=== PATIENT | female | born 1980 | race Two or more races ===

== ENCOUNTER → 2024-08-09 | Outpatient (CLI) | payer BC, SELFPAY ==
--- NOTE | 2024-08-09 15:41 | XR_ITS ---
Examination: Knee, left , 3 views Technique: Knee AP, lateral, oblique 3 views Date and time of exam: August 09, 2024 1603 hours INDICATIONS: Knee pain beginning several years ago FINDINGS: Mild narrowing medial joint space Moderate osteopenia No fracture or dislocation No ossified joint bodies IMPRESSION: Mild narrowing medial joint space
--- NOTE | 2024-08-09 15:41 | XR_ITS ---
Examination: Lumbar spine 3 views TECHNIQUE: AP lateral coned lateral lower lumbar spine 3 views Exam date and time: August 09, 2024 1615 hours INDICATIONS: Low back pain beginning several years ago. FINDINGS: Minimal anterolisthesis L4 on L3 on the lateral view No lumbar fracture Diffuse lumbar disc narrowing, moderate L4-L5, advanced L5-S1 No spondylolisthesis IMPRESSION: Diffuse lumbar degenerative disc disease, moderate L4-L5, advanced L5-S1
--- NOTE | 2024-08-09 15:41 | XR_ITS ---
Examination: Cervical spine 3 views Technique one AP lateral coned AP odontoid cervical spine 3 views Exam date and time: August 09, 2024 1610 hours INDICATIONS: Neck pain beginning several years ago. FINDINGS: Adequate alignment cervical vertebral bodies Early degenerative disc disease C4-C5 No cervical fracture Intact odontoid IMPRESSION: Early degenerative disc disease C4-C5
== END | disposition home or self-care (01) ==
LOC: SDIM 15:27
PROVIDERS: PCP Nurse Practitioner Family; Referring Provider Nurse Practitioner Family; Visit Provider Nurse Practitioner Family
DX: M50.321 Other cervical disc degeneration at C4-C5 level (principal); M25.862 Other specified joint disorders, left knee; M51.369 Other intervertebral disc degeneration, lumbar region without mention of lumbar back pain or lower extremity pain; M51.379 Other intervertebral disc degeneration, lumbosacral region without mention of lumbar back pain or lower extremity pain
CPT/HCPCS: 72040; 72100; 73562

== ENCOUNTER → 2024-09-15 | Outpatient (CLI) | payer BC, SELFPAY ==
--- NOTE | 2024-09-15 15:00 | XR_ITS ---
Examination: Abdomen sonogram, Limited Date and time of exam: September 15, 2024 1502 hrs. Indications: Abnormal serum ferritin levels on laboratory examination last week Technique: Real-time molina scale transabdominal sonographic images of the upper abdomen obtained. Findings: Normal gallbladder Normal common bile duct 0.4 cm Pancreatic head 3.1 cm Liver 18.8 cm fatty infiltration smooth contour no focal liver lesions Normal hepatopedal portal venous Patent IVC Impression: Normal gallbladder Mild hepatomegaly
== END | disposition home or self-care (01) ==
PROVIDERS: PCP Nurse Practitioner Family; Referring Provider Nurse Practitioner Family; Visit Provider Nurse Practitioner Family
DX: R16.0 Hepatomegaly, not elsewhere classified (principal)
CPT/HCPCS: 76705

== ENCOUNTER → 2024-10-25 | Outpatient (CLI) | payer BC, SELFPAY ==
--- NOTE | 2024-10-25 15:00 | XR_ITS ---
Examination: Ultrasound soft tissue left foot Technique: Grayscale sonographic images soft tissue left buttock Exam date and time: October 25, 2024 1541 hrs. Indications: Anterior foot (beginning 8 months ago with difficulty walking Findings: Multiple soft tissue masses in the area concern left foot, the largest 2.2 x 1.5 cm and 2.0 x 1.7 cm Impression: Soft tissue masses left foot at the area of concern Recommend MRI foot follow-up pre and postcontrast
--- NOTE | 2024-10-25 15:30 | XR_ITS ---
Examination: Ultrasound soft tissue neck Technique: Grayscale sonographic images soft tissue neck Exam date and time: October 25, 2024 1541 hrs. Indications: Neck tenderness and palpable lymph nodes on clinical examination by physician one month ago. Findings: Multiple lymph nodes in the soft tissue neck left neck The largest in the left neck 2.2 x 1.5 cm and 2.0 x 1.7 cm Impression: Consider CT soft tissue neck post intravenous contrast follow-up to assess full extent of cervical lymphadenopathy
== END | disposition home or self-care (01) ==
PROVIDERS: PCP Nurse Practitioner Family; Referring Provider Nurse Practitioner Family; Visit Provider Nurse Practitioner Family
DX: R59.0 Localized enlarged lymph nodes (principal)
CPT/HCPCS: 76536; 76882

== ENCOUNTER → 2024-10-26 | Outpatient (CLI) | payer BC, SELFPAY ==
--- NOTE | 2024-10-26 10:36 | XR_ITS ---
Examination: MRI lumbar spine without contrast Date and time of exam: October 26, 2024, 1040 hrs. Indications: Low back pain radiating down both legs worse the last 3 years Technique: Multiple MRI axial and sagittal sections lumbar spine. Sagittal T2-weighted images, TR 3500, TE 118 T1 weighted transverse sections, TR 688 T8.5, T2-weighted sagittal sections T1 weighted sagittal sections TR 621, TE 30 T2 axial sections, TR 4, 190, TE 84. Findings: Grade 1 anterolisthesis L4 on L5 No lumbar fracture Disc desiccation lower 3 lumbar levels Mild to moderate disc narrowing L4-L5 L5-S1 partially extruded 11 mm central lumbar disc bulge contiguous with the right and left S1 nerve roots and extending to the left intervertebral foramen with mild left L5 ganglionic compression L4-L5 2 mm central lumbar disc bulge More cephalad levels unremarkable Impression: L5-S1 partially extruded 11 mm central lumbar disc bulge extending to the left intervertebral foramen as above
== END | disposition home or self-care (01) ==
LOC: SMRI 10:25
PROVIDERS: PCP Nurse Practitioner Family; Referring Provider Nurse Practitioner Family; Visit Provider Nurse Practitioner Family
DX: M51.27 Other intervertebral disc displacement, lumbosacral region (principal)
CPT/HCPCS: 72148

== ENCOUNTER → 2024-12-16 | Outpatient (CLI) | payer BC, SELFPAY ==
--- NOTE | 2024-12-16 15:30 | XR_ITS ---
Examination: CT soft tissue neck, with intravenous contrast. 2-D coronal reconstructions. 2-D sagittal reconstructions. Date and time of exam :December 16, 2024 at 1435 hours INDICATIONS: Palpable lymph nodes left side of the neck one year, ultrasound soft tissue neck left cervical lymph nodes, the largest 2.2 cm on study October 25, 2024. CTDI: vol (mGy):20.4 DLP: (mGycm):618 Technique: 1.25 mm axial sections of the neck of the obtained. Coronal and sagittal reconstructions have been obtained. Intravenous contrast administered 50 cc Isovue 370. Low dose protocols were performed. One or more of the following dose reduction techniques were used; automated exposure control, adjustment of the mA and/or KV according to patient size, use of iterative reconstruction technique. Findings: Large retention cyst right maxillary antrum Symmetrical nasopharynx oropharynx Bilateral carotid triangle lymph nodes, the largest on the left side 18 mm on the right side 12 mm The larynx appears normal Normal epiglottis Thyroid nodes are not enlarged Lung apices clear IMPRESSION: Bilateral carotid triangle lymphadenopathy as above, suggest 3-6 month follow-up continued ultrasound soft tissue neck
== END | disposition home or self-care (01) ==
LOC: CCTX 15:03
PROVIDERS: PCP Family Medicine; Referring Provider Nurse Practitioner Family; Visit Provider Nurse Practitioner Family
DX: R59.0 Localized enlarged lymph nodes (principal)
CPT/HCPCS: 70491; A4649; Q9967

== ENCOUNTER → 2025-01-18 | Outpatient (CLI) | payer BC, SELFPAY ==
--- NOTE | 2025-01-18 10:00 | XR_ITS ---
Examination: MRI left foot, without intravenous contrast. MRI left foot , with intravenous contrast. Exam date and time: January 18, 2025 1147 hours INDICATIONS: Sharp foot pain, palpable lump soft tissue masses dorsal aspect of the foot near the ankle Technique: Multiple axial, sagittal and coronal images of the left thyroid have been obtained with the Siemens high-resolution 1.5 Juhi MRI scanner. Images obtained included T2 weighted fat suppressed sagittal sections, TR 3500, TE 46, T2 weighted coronal fat suppressed images, TR 3050, TE 84, T2-weighted transverse fat suppressed images, TR 30-60, TE 63, proton density transverse images, TR 4720, TE 46, and T1 weighted coronal images, TR 560, TE 13. Axial, sagittal and coronal images are obtained post intravenous injection 20 cc gadolinium. Findings: Homogeneous marrow signal, no occult fracture bone contusion marrow edema or avascular necrosis Significant plantar fasciitis Negative for sinus Tarsi syndrome Mild osteoarthritis tarsometatarsal joints first metatarsophalangeal joint No enhancing soft tissue tumor mass on the postcontrast images IMPRESSION:: Significant plantar fasciitis Osteoarthritis as above Recommend ultrasound soft tissue foot follow-up at the areas of concern
== END | disposition home or self-care (01) ==
PROVIDERS: PCP Nurse Practitioner Family; Referring Provider Nurse Practitioner Family; Visit Provider Nurse Practitioner Family
DX: M72.2 Plantar fascial fibromatosis (principal); M19.072 Primary osteoarthritis, left ankle and foot
CPT/HCPCS: 73720; A9579